=== PATIENT | female | born 2000 | race Caucasian/White ===

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

== ENCOUNTER 2023-01-27 13:13 | Emergency (ER) | payer MEDICAID, OTHER ==
[~2023-01-27] VITALS: Ht 157.5 cm; Wt 55.8 kg
[2023-01-27] MEDS ORDERED: BENZ-300 PO (13:23)
[2023-01-27] MEDS ORDERED: CETI10SG1 PO (13:23)
[2023-01-27 13:27] VITALS: BP 112/67; PULSE 89; RESP 18; TEMP 97; O2SAT 98
[2023-01-27] MEDS ORDERED: IBUP-2213 PO (14:58)
== END 2023-01-27 15:12 | disposition home or self-care (01) ==
LOC: MED 13:13
DX: S80.01XA Contusion of right knee, initial encounter (principal); W01.198A Fall on same level from slipping, tripping and stumbling with subsequent striking against other object, initial encounter; Y93.89 Activity, other specified; Y92.89 Other specified places as the place of occurrence of the external cause; Y99.8 Other external cause status
CPT/HCPCS: 73562; 99283